=== PATIENT | male | born 1965 | race Caucasian/White ===

== ENCOUNTER 2016-09-21 01:24 | Emergency (ER) | payer OTHER ==
[~2016-09-21] VITALS: Ht 182.9 cm; Wt 80.0 kg
[~2016-09-21 01:24] MED LIST: ASPI81CH37 CHEW; CEPH-460 PO; PRAS10TA PO
[2016-09-21 01:26] VITALS: BP 125/74; PULSE 92; RESP 18; TEMP 98; O2SAT 96
--- NOTE | 2016-09-21 01:49 | PD ---
HPI Chief Complaint: Injury Time Seen by Provider: 01:40 Travel History International Travel<30 days: No Contact w/Intl Traveler<30days: No Traveled to known affect area: No History of Present Illness HPI 50-year-old male presents for evaluation of right foot pain. At 2 PM the patient accidentally dropped a trailer on his right foot.He now has pain and bruising to the dorsal right foot, throbbing, constant, worse with walking. He denies any other injuries and has no other complaints at this time. PFSH Past Medical History Hx Anticoagulant Therapy: Yes Cardiovascular Problems: Yes ([place] X 3; [place]) Social History Alcohol Use: Yes Tobacco Use: Yes Allergies-Medications (Allergen,Severity, Reaction): Coded Allergies: No Known Allergies (Unverified , 09/21/16) Reported Meds & Prescriptions Reported Meds & Active Scripts Active Ibuprofen 800 Mg Tab 800 Mg PO Q6HR PRN Keflex (Cephalexin) 500 Mg Cap 500 Mg PO Q12H 7 Days Reported Aspirin Low Dose (Aspirin) 81 Mg Chew 81 Mg CHEW DAILY Effient (Prasugrel) Unknown Strength Tab Unknown Dose PO DAILY Review of Systems Except as stated in HPI: all other systems reviewed are Neg Physical Exam Narrative GENERAL: Well-developed well-nourished male in no acute distress SKIN: Warm and dry. Bruising on the dorsal aspect of the right foot. Tender to palpation. CARDIOVASCULAR: Regular rate and rhythm. No murmur appreciated. RESPIRATORY: No accessory muscle use. Clear to auscultation. Breath sounds equal bilaterally. MUSCULOSKELETAL: Skin as noted above. Generalized tenderness to palpation of the dorsal right foot. Sensation is preserved. 2+ dorsalis pedis pulse. Data Data Last Documented VS Vital Signs Date Time Temp Pulse Resp B/P Pulse Ox O2 Delivery O2 Flow Rate FiO2 09/21/16 01:53 Room Air 09/21/16 01:26 98.0 92 18 125/74 96 Orders Foot, Complete ([id number]) (09/21/16 ) Ice/Cold Pack (09/21/16 01:46) Acetamin-Hydrocod 325-5 Mg ([place] 5-325 (09/21/16 02:00) MDM Medical Decision Making Medical Screen Exam Complete: Yes Emergency Medical Condition: Yes Medical Record Reviewed: Yes Interpretation(s) Foot x-ray reveals no acute abnormalities Differential Diagnosis Contusion, fracture, sprain, dislocation, Lisfranc injury Narrative Course 50-year-old male presents with right foot pain after dropping a trailer on his right foot. Examination reveals bruising, soft tissue swelling with dorsal aspect of the right foot. X-ray reveals no acute abnormalities. The patient was given pain medication. He declines crutches. He is stable for discharge. Diagnosis Primary Impression: Contusion of right foot Qualified Code: S90.31XA - Contusion of right foot, initial encounter Additional Instructions: Ice pack several times a day 10 minutes at a time. Rest. Elevate. Ibuprofen with meals. Follow-up with primary care physician. Return for any emergent medical conditions. Med/Other Pt SpecificInfo: Prescription(s) given Scripts Ibuprofen 800 Mg [id number] Mg PO Q6HR PRN (PAIN) #40 TAB Ref 0 Prov:Joselito Clements MD 09/21/16 Disposition: 01 DISCHARGE HOME Condition: Stable Reed Omalley Sep 21, 2016 01:49
[2016-09-21] MEDS ORDERED: ACETAMINOPHEN/HYDROcodone 325 MG/5 MG TAB PO ONE (02:00)
--- NOTE | 2016-09-21 02:04 | RADRPT ---
EXAM DATE/TIME: 09/21/2016 01:56 [facility] COMPARISON: No previous studies available for comparison. INDICATIONS : Pt dropped trailer onto top of foot. Pain, redness and swelling to top of foot. MEDICAL HISTORY : Psoriasis SURGICAL HISTORY : None. ENCOUNTER: Initial ACUITY: 1 day PAIN SCORE: 9/10 LOCATION: Right foot FINDINGS: No definite fractures, or dislocations are identified. No definite lytic or sclerotic lesion is seen . The joint spaces are well maintained. CONCLUSION: Unremarkable study. Macey Ureña MD on September 21, 2016 at 2:02 Board Certified Radiologist. This report was verified electronically.
[2016-09-21] MEDS ORDERED: IBUP800T23 PO (02:25)
== END 2016-09-21 02:56 | disposition home or self-care (01) ==
LOC: NEPB 01:24
DX: S90.31XA Contusion of right foot, initial encounter (principal); Z79.01 Long term (current) use of anticoagulants; F10.10 Alcohol abuse, uncomplicated; V09.9XXA Pedestrian injured in unspecified transport accident, initial encounter; Y93.89 Activity, other specified; Y92.89 Other specified places as the place of occurrence of the external cause; Y99.8 Other external cause status
CPT/HCPCS: 73630; 99283

== ENCOUNTER 2017-01-16 18:15 | Emergency (ER) | payer OTHER ==
[~2017-01-16] VITALS: Ht 185.4 cm; Wt 89.0 kg
[~2017-01-16 18:15] MED LIST changes: +IBUP800T23 PO
[2017-01-16 18:16] VITALS: BP 134/87; PULSE 88; RESP 20; TEMP 98.3; O2SAT 96
[2017-01-16] MEDS ORDERED: cefTRIAXone 250 MG VIAL IM ONE (18:30)
[2017-01-16] MEDS ORDERED: AZITHROMYCIN PWD FOR SUSP 1 GM PACKET PO ONE (18:30)
[2017-01-16] MEDS ORDERED: LIDOCAINE HCL 1% 50 ML VIAL IM ONE (18:30)
--- NOTE | 2017-01-16 18:32 | PD ---
HPI Chief Complaint: Complaint Time Seen by Provider: 18:31 Travel History International Travel<30 days: No Contact w/Intl Traveler<30days: No Traveled to known affect area: No History of Present Illness HPI 51-year-old male presents to the emergency Department with complaint of penile drainage on and off for the past 2 weeks. He was called by his sexual partner today and told that she had Trichomonas. He says he was treated for STD here a few months ago. Denies testicular pain, swelling. Denies penile pain. Denies fever, vomiting, abdominal pain. He has not taken any medications or drainage from his CVA symptoms. No known allergies. No other modifying factors or associated signs and symptoms. PFSH Past Medical History Hx Anticoagulant Therapy: Yes (EFFIENT) Cardiovascular Problems: Yes ([place] X 4) Social History Alcohol Use: Yes Tobacco Use: Yes Allergies-Medications (Allergen,Severity, Reaction): Coded Allergies: No Known Allergies (Unverified , 09/21/16) Reported Meds & Prescriptions Reported Meds & Active Scripts Active Doxycycline Hyclate 100 Mg Cap 100 Mg PO BID 10 Days Ibuprofen 800 Mg Tab 800 Mg PO Q6HR PRN Keflex (Cephalexin) 500 Mg Cap 500 Mg PO Q12H 7 Days Reported Aspirin Low Dose (Aspirin) 81 Mg Chew 81 Mg CHEW DAILY Effient (Prasugrel) Unknown Strength Tab Unknown Dose PO DAILY Review of Systems Except as stated in HPI: all other systems reviewed are Neg Physical Exam Narrative GENERAL: Well-nourished, well-developed male patient, in no acute distress SKIN: Warm and dry. HEAD: Atraumatic. Normocephalic. EYES: Pupils equal and round. ENT: Mucosa pink and moist. NECK: Trachea midline. No lymphadenopathy. CARDIOVASCULAR: Regular rate and rhythm. No murmur appreciated. 3+ radial pulses. RESPIRATORY: No accessory muscle use. Clear to auscultation. Breath sounds equal bilaterally. GASTROINTESTINAL: Abdomen soft and nondisteneded; with tenderness at the umbilicus on palpation. Hepatic and splenic margins not palpable. Bowel sounds are active 4 quadrants. GENITOURINARY: Circumcised. Hypospadias. Testes descended bilaterally without evidence of rotation. No lesions or erythema. No urethral discharge noted on physical exam. MUSCULOSKELETAL: No obvious deformities. No clubbing. No cyanosis. No edema. NEUROLOGICAL: Awake and alert. Oriented 3. No obvious cranial nerve deficits. Motor grossly within normal limits. Normal speech. Moves all extremities. 5/5 strength to all extremities. PSYCHIATRIC: Appropriate mood and affect; insight and judgment normal. Data Data Last Documented VS Orders Gc And Chlamydia Pcr (01/16/17 18:26) Urinalysis - C+S If Indicated (01/16/17 18:26) Azithromycin Powd Pack (Zithromax Powd P (01/16/17 18:30) Ceftriaxone Inj (Rocephin Inj) (01/16/17 18:30) Lidocaine 1% Inj (50 Ml) (Xylocaine 1% I (01/16/17 18:30) Urine Culture (01/16/17 19:00) MDM Medical Decision Making Medical Screen Exam Complete: Yes Emergency Medical Condition: Yes Medical Record Reviewed: Yes Differential Diagnosis Urethritis, chlamydia, gonorrhea Narrative Course 51yo M exposed to trichomonas c/o dysuria and penile discharge. Urinalysis, chlamydia, gonorrhea ordered. Patient empirically treated with Rocephin and Azithromycin. Doxycycline prescribed for home. Instructed patient to f/u with PCP or health department for continued treatment and evaluation. Diagnosis Primary Impression: Urethritis Referrals: Primary Care Physician Patient Instructions: Chlamydia (ED), General Instructions, Gonorrhea (ED), Sexually Transmitted Diseases (ED) Additional Instructions: Avoid sexual activity until you follow up with your primary care provider Inform all sexual partners within the past 3-6 months that they need to be evaluated and treated Use condoms every time you have sex Follow-up with primary care provider Return to the emergency department immediately with worsening of symptoms Med/Other Pt SpecificInfo: Prescription(s) given Scripts Doxycycline Hyclate 100 Mg Nut364 Mg PO BID 10 Days Ref 0 Prov:Brooklyn Ellison 01/16/17 Disposition: 01 DISCHARGE HOME Condition: Stable Brooklyn Ellison January 16, 2017 18:32 Brooklyn Ellison January 16, 2017 18:32
[2017-01-16] MEDS ORDERED: DOXY100C PO (18:44)
[2017-01-16 19:13] LABS: BACTERIA, URINE MOD /hpf; BLOOD, URINE NEG (NEG); COMMENT (UR) CULTURE INDICATED; CULTURE IF INDICATED CULTURE INDICATED; GLUCOSE,URINE NEG (NEG); KETONE, URINE NEG (NEG); MUCUS URINE FEW /lpf (OCC); NITRITE,URINE NEG (NEG); PH, URINE 6.5 (5.0-8.5); SQUAMOUS EPITHELIAL CELL URINE 2 /hpf (0-5); URINE COLOR YELLOW (YELLW/STRAW)
[2017-01-16 21:45] LABS: CHLAMYDIA PCR NOT DETECTED (NOT DETECT); NEISSERIA PCR NOT DETECTED (NOT DETECT)
== END 2017-01-16 19:36 | disposition home or self-care (01) ==
LOC: NEPK 18:15
DX: N34.2 Other urethritis (principal); Z20.2 Contact with and (suspected) exposure to infections with a predominantly sexual mode of transmission
CPT/HCPCS: 81001; 87086; 87491; 87591; 96372; 99283; J0696

== ENCOUNTER 2017-02-19 00:30 | Emergency (ER) | payer OTHER ==
[~2017-02-19] VITALS: Ht 185.4 cm; Wt 89.0 kg
[~2017-02-19 00:30] MED LIST changes: +DOXY100C PO
[2017-02-19 00:31] VITALS: BP 130/76; PULSE 77; RESP 16; TEMP 98.3; O2SAT 96
[2017-02-19] MEDS ORDERED: cefTRIAXone 250 MG VIAL IM ONE (01:30)
[2017-02-19] MEDS ORDERED: ONDANSETRON ODT 4 MG TAB PO/SL ONE (01:30)
[2017-02-19] MEDS ORDERED: AZITHROMYCIN 250 MG TAB PO ONE (01:30)
[2017-02-19] MEDS ORDERED: metroNIDAZOLE 500 MG TAB PO ONE (01:30)
[2017-02-19] MEDS ORDERED: LIDOCAINE HCL 1% 50 ML VIAL XX ONE (01:30)
[2017-02-19 01:52] LABS: BACTERIA, URINE OCC /hpf; BLOOD, URINE SMALL (NEG); COMMENT (UR) CULTURE INDICATED; CULTURE IF INDICATED CULTURE INDICATED; GLUCOSE,URINE NEG (NEG); KETONE, URINE NEG (NEG); MUCUS URINE FEW /lpf (OCC); NITRITE,URINE NEG (NEG); SQUAMOUS EPITHELIAL CELL URINE 2 /hpf (0-5); URINE COLOR YELLOW (YELLW/STRAW)
--- NOTE | 2017-02-19 02:00 | PD ---
HPI Chief Complaint: Complaint Time Seen by Provider: 01:00 Travel History International Travel<30 days: No Contact w/Intl Traveler<30days: No Traveled to known affect area: No History of Present Illness HPI Patient's 51-year-old male presenting to the emergency department for evaluation of 3 days of yellow discharge from his penis. He reports having unprotected sex approximately one week ago. He states that he had oral sex and anal sex. He reports having the same partner for the last 17 years however she was recently told that she had Trichomonas. Patient reports that he has a history of gonorrhea in August 2016. He denies any testicular pain, abdominal pain, groin pain, fevers, chills, nausea, vomiting. He further denies any dysuria. PFSH Past Medical History Hx Anticoagulant Therapy: Yes (EFFIENT) Cardiovascular Problems: Yes ([place] X 4) Diminished Hearing: No Tetanus Vaccination: Unknown Influenza Vaccination: No Past Surgical History Surgical History: No Previous Surgery Social History Alcohol Use: Yes Tobacco Use: Yes Substance Use: No Allergies-Medications (Allergen,Severity, Reaction): Coded Allergies: No Known Allergies (Unverified , 02/19/17) Reported Meds & Prescriptions Reported Meds & Active Scripts Active Reported Aspirin Low Dose (Aspirin) 81 Mg Chew 81 Mg CHEW DAILY Effient (Prasugrel) Unknown Strength Tab Unknown Dose PO DAILY Review of Systems Except as stated in HPI: all other systems reviewed are Neg Genitourinary: Positive: Discharge Physical Exam Narrative GENERAL: Well-nourished, well-developed patient. SKIN: Focused skin assessment warm/dry. HEAD: Normocephalic. EYES: No scleral icterus. No injection or drainage. NECK: Supple, trachea midline. No JVD or lymphadenopathy. CARDIOVASCULAR: Regular rate and rhythm without murmurs, gallops, or rubs. RESPIRATORY: Breath sounds equal bilaterally. No accessory muscle use. GASTROINTESTINAL: Abdomen soft, non-tender, nondistended. MUSCULOSKELETAL: No cyanosis, or edema. BACK: Nontender without obvious deformity. No CVA tenderness. Data Data Last Documented VS Vital Signs Date Time Temp Pulse Resp B/P Pulse Ox O2 Delivery O2 Flow Rate FiO2 02/19/17 00:31 98.3 77 16 130/76 96 Orders Urinalysis - C+S If Indicated (02/19/17 00:53) Gc And Chlamydia Pcr (02/19/17 00:53) Azithromycin (Zithromax) (02/19/17 01:30) Ceftriaxone Inj (Rocephin Inj) (02/19/17 01:30) Metronidazole (Flagyl) (02/19/17 01:30) Ondansetron Odt (Zofran Odt) (02/19/17 01:30) Lidocaine 1% Inj (50 Ml) (Xylocaine 1% I (02/19/17 01:30) Urine Culture (02/19/17 01:26) Levofloxacin (Levaquin) (02/19/17 02:15) Labs Laboratory Tests Test 02/19/17:26 Urine Color YELLOW Urine Turbidity HAZY Urine pH 6.0 Urine Specific [place] 1.022 Urine Protein NEG mg/dL Urine Glucose (UA) NEG mg/dL Urine Ketones NEG mg/dL Urine Occult Blood SMALL Urine Nitrite NEG Urine Bilirubin NEG Urine Urobilinogen LESS THAN 2.0 MG/DL Urine Leukocyte Esterase LARGE Urine RBC 14 /hpf Urine WBC 124 /hpf Urine WBC Clumps MOD Urine Squamous Epithelial 2 /hpf Cells Urine Bacteria OCC /hpf Urine Mucus FEW /lpf Urine Trichomonas FEW Microscopic Urinalysis Comment CULTURE INDICATED MDM Medical Decision Making Medical Screen Exam Complete: Yes Emergency Medical Condition: Yes Medical Record Reviewed: Yes Interpretation(s) Vital Signs Date Time Temp Pulse Resp B/P Pulse Ox O2 Delivery O2 Flow Rate FiO2 02/19/17 00:31 98.3 77 16 130/76 96 Differential Diagnosis STD versus cystitis versus UTI versus epididymitis Narrative Course Patient is a 51-year-old male presenting to emergency room for evaluation of penile discharge. Patient has a history of gonorrhea in August 2016. He admits to having anal sex. Urinalysis shows elevated red blood cells, significant pyuria, elevated leukocyte esterase. Patient was treated empirically based on symptoms. Chlamydia and gonorrhea is pending. Patient will be treated with Levaquin 500 mg by mouth for 10 days. He is advised to follow-up with a primary doctor. He is encouraged to maintain safe sexual practices. He was advised if he continues to have urinary symptoms that he may need to be referred to a urologist. Patient verbalized understanding of instructions. Patient is stable for discharge. Diagnosis Primary Impression: Discharge from penis Additional Impression: Urinary tract infection Qualified Code: N39.0 - Urinary tract infection with hematuria, site unspecified Referrals: [facility] Patient Instructions: General Instructions Additional Instructions: Follow-up with a primary doctor at the [facility] Take medications as directed You will be notified regarding test results, if positive your partner will need to be treated as well Avoid alcohol for 48 hours as it will interact with metronidazole that you were given in the emergency department, it can cause nausea and vomiting Return to emergency department for any new or worsening symptoms Med/Other Pt SpecificInfo: Prescription(s) given Scripts Levofloxacin 500 Mg [id number] Mg PO DAILY #10 TAB Ref 0 Prov:Marni Ziegler 02/19/17 Disposition: 01 DISCHARGE HOME Condition: Stable Marni Ziegler Feb 19, 2017 02:00
[2017-02-19] MEDS ORDERED: LEVOFLOXACIN 500 MG TAB PO ONE (02:15)
[2017-02-19] MEDS ORDERED: LEVO500T8 PO (02:20)
[2017-02-19 03:37] LABS: CHLAMYDIA PCR NOT DETECTED (NOT DETECT); NEISSERIA PCR NOT DETECTED (NOT DETECT)
== END 2017-02-19 03:11 | disposition home or self-care (01) ==
LOC: NEPD 00:30
DX: R36.9 Urethral discharge, unspecified (principal); N39.0 Urinary tract infection, site not specified; I25.2 Old myocardial infarction; Z79.01 Long term (current) use of anticoagulants; Z72.0 Tobacco use; Z86.79 Personal history of other diseases of the circulatory system
CPT/HCPCS: 81001; 87086; 87491; 87591; 96372; 99284; J0696